=== PATIENT | female | born 1990 | race Caucasian/White ===

== ENCOUNTER 2020-07-10 09:16 | Outpatient (CLI) | payer OTHER ==
[2020-07-11 12:04] LABS: SARS-CoV-2 MS2 Positive; SARS-CoV-2 N Gene Negative; SARS-CoV-2 S Gene Negative; SARS-CoV-2 by NAA Not Detected (NotDetected); SARS-CoV-2 orf1ab Negative
== END 2020-07-10 09:17 | disposition home or self-care (01) ==
LOC: LABBT 09:16
PROVIDERS: ATTEND Obstetrics & Gynecology
DX: Z20.828 Contact with and (suspected) exposure to other viral communicable diseases (principal)
CPT/HCPCS: 87635; U0003

== ENCOUNTER 2020-07-13 08:13 | Inpatient (IN) | payer OTHER ==
[~2020-07-13 08:13] MED LIST: Bicitra 30 ML UDCUP PO SCH; CEFAZOLIN 2 GM in Premix Bag 1 BAG IVPB SCH; Lactated Ringer's 1,000 ML IV SCH; Ondansetron PF 4 MG/2 ML Vial IVP PRN; Promethazine HCl 25 MG/ML VIAL IM PRN; hydrALAZINE 20 MG/ML VIAL SLOW IVP PRN
[2020-07-13 08:59] VITALS: BMI 25.7
[2020-07-13] MEDS ORDERED: Scopolamine 1.5 mg/72 hour Patch ONE (09:22)
[2020-07-13] MEDS ORDERED: Famotidine/PF 20 mg/2ml Vial ONE (09:22)
[2020-07-13] MEDS ORDERED: Ondansetron PF 4 MG/2 ML Vial ONE (09:23)
[2020-07-13 09:42] LABS: Hemoglobin 11.7 g/dL (12.0-16.0); Mean Corpuscular HGB CONC 34.1 g/dL (32.0-36.0); Mean Corpuscular Hemoglobin 31.4 pg (27.0-31.0); Mean Corpuscular Volume 92.2 fL (78.0-98.0); Mean Platelet Volume 7.9 fL (7.4-10.4); Platelet Count 247 thou/uL (130-400); Red Blood Cell (RBC) Count 3.73 mill/uL (4.20-5.40); White Blood Cell (WBC) Count 12.1 thou/uL (4.8-10.8)
[2020-07-13] MEDS ORDERED: Oxytocin 10 UNITS/ML VIAL ONE ×2 (09:58→11:01)
[2020-07-13] MEDS ORDERED: Morphine PF 10 MG/10 ML VIAL ONE (09:59)
[2020-07-13 10:22] LABS: HBSAg Index 0.17 S/CO (0-0.99); Hep B Surf Ag Non-Reactive S/CO (NonReactive); Syphilis Antibody Nonreactive (Nonreactive); Syphilis Antibody Index 0.06 S/CO (<1.00 Non-Reactive)
[2020-07-13] MEDS ORDERED: Meperidine HCl/PF 25 MG/ML VIAL ONE (10:41)
[2020-07-13] MEDS ORDERED: PHENYLEPHRINE-NS 100 MCG/ML 10 ML SYRINGE ONE (10:44)
[2020-07-13] MEDS ORDERED: L&D-Morphine 4 MG/ML VIAL SLOW IVP PRN (10:59)
[2020-07-13] MEDS ORDERED: diphenhydrAMINE 50 MG/ML VIAL IVP PRN (10:59)
[2020-07-13] MEDS ORDERED: Naloxone HCl 0.4 mg/ml Vial IVP PRN ×2 (10:59)
[2020-07-13] MEDS ORDERED: Naloxone HCl 0.4 mg/ml Vial IV PRN (10:59)
[2020-07-13] MEDS ORDERED: Ondansetron PF 4 MG/2 ML Vial IVP PRN ×2 (10:59→12:07)
[2020-07-13] MEDS ORDERED: Promethazine HCl 25 MG SUPP PR PRN (10:59)
[2020-07-13] MEDS ORDERED: HYDROmorphone 2 MG/ML VIAL SLOW IVP PRN (10:59)
[2020-07-13] MEDS ORDERED: Ondansetron HCl/PF 4 MG/2 ML Vial IVP PRN (10:59)
[2020-07-13] MEDS ORDERED: Promethazine HCl 25 MG/ML VIAL IM PRN ×2 (10:59→12:07)
[2020-07-13] MEDS ORDERED: Meperidine HCl/PF 25 MG/ML VIAL SLOW IVP PRN (10:59)
[2020-07-13] MEDS ORDERED: Ketorolac Tromethamine 30 MG/ML VIAL IVP SCH (11:00)
[2020-07-13] MEDS ORDERED: Communication Order-Pharmacy FS SCH (11:00)
[2020-07-13] MEDS ORDERED: NS / Oxytocin 40 units/1000ml 1,000 ML IV SCH (12:07)
[2020-07-13] MEDS ORDERED: Lanolin Ointment 7 GM TUBE TOP PRN (12:07)
[2020-07-13] MEDS ORDERED: hydrALAZINE 20 MG/ML VIAL SLOW IVP PRN (12:07)
[2020-07-13] MEDS ORDERED: Simethicone Chewable 80 MG TAB PO PRN (12:07)
[2020-07-13] MEDS ORDERED: Ketorolac Tromethamine 30 MG/ML VIAL ONE (12:30)
[2020-07-13] MEDS: Ketorolac Tromethamine 30 MG/ML VIAL IVP PRN ×2 (12:37→18:21)
[2020-07-13] MEDS ORDERED: FLU VACC QS2020-21(6MOS UP)/PF 60 MCG/0.5 ML SYRINGE IM ONE (13:00)
[2020-07-13] MEDS ORDERED: Adacel (T-DAP) 0.5 ML SYRINGE IM ONE (15:00)
[2020-07-13] MEDS: Lactated Ringer's 1,000 ML IV SCH ×2 (15:35→22:39)
--- NOTE | 2020-07-13 16:46 | OP ---
DATE OF PROCEDURE: 07/13/2020 PREOPERATIVE DIAGNOSES: 39 weeks gestation, prior section for repeat at term. POSTOPERATIVE DIAGNOSES: 39 weeks gestation, prior section for repeat at term. PROCEDURE PERFORMED: Repeat low-transverse section without extension. VALUE ENGINEER: Sandra Sutherland PA-C ANESTHESIA: Subarachnoid block. ANESTHESIOLOGIST: DRAINS: Carranza to gravity. MEDICATIONS: 2 g Ancef preincision. DVT prophylaxis with SCDs. OPERATIVE FINDINGS: 1. Vigorous male , cephalic presentation, clear fluid with to nursery, Apgars and weight were pending. 2. Normal-appearing uterus, tubes, and ovaries bilaterally. 3. Hemostasis, clear urine. COUNTS: Correct at the end of the procedure. DISPOSITION: Recovery room in good condition. DESCRIPTION OF PROCEDURE: After obtaining appropriate informed consent, the patient was taken to the operating room, where subarachnoid block was achieved without difficulty. The patient was prepped and draped in the usual manner for delivery. Previous Pfannenstiel incision was identified, marked, and incised sharply and carried down to the fascia in the midline, extended superiorly and laterally with curved Meadows scissors. Rectus dissected off sharply superiorly and inferiorly, divided in midline. Peritoneum entered bluntly to avoid trauma to the underlying viscera. Niall O retractor was placed inside. Lower uterine segment and vesicouterine peritoneal fold were identified. Low-transverse hysterotomy was made just above the level of the vesicouterine peritoneal fold. Clear fluid noted upon entry and extended superiorly and laterally with finger fractionation. The 's head elevated to hysterotomy. The rest of the delivered, suctioned, cord clamped and cut, and handed off to the team in attendance. Usual cord blood sample obtained. Placenta delivered manually. Uterus was noted to be without extension with hysterotomy and curetted out with a dry laparotomy sponge. Hysterotomy was closed with a running locking #1 Monocryl suture x1 layer. The gutters were irrigated out bilaterally and reinspection of hysterotomy revealed it to be dry. The Niall O retractor was removed. The rectus was inspected, noted to be dry. Fascia was reapproximated using running 0 PDS suture x2. Subcutaneous tissue was irrigated, rendered hemostatic with Bovie cautery, reapproximated using 2-0 plain gut, and skin reapproximated using 4-0 Monocryl and Dermabond. The patient entered into routine postoperative care. EBL was within normal limits. QBL pending. Job ID: [id number]
[2020-07-13] MEDS: Docusate Calcium (SURFAK) 240 MG CAP PO SCH (22:38)
[2020-07-13] MEDS ORDERED: Zolpidem Tartrate 5 MG TAB PO PRN (23:01)
[2020-07-13] MEDS ORDERED: Meperidine HCl/PF 25 MG/ML VIAL IM PRN (23:01)
[2020-07-13] MEDS ORDERED: HYDROcodone/Acetaminophen 5/325 mg Tablet PO PRN (23:01)
[2020-07-14] MEDS ORDERED: Sodium Chloride 0.9% 10 ML ONE (00:59)
[2020-07-14] MEDS: Ketorolac Tromethamine 30 MG/ML VIAL IVP PRN (01:02)
[2020-07-14 06:10] LABS: Hemoglobin 9.3 g/dL (12.0-16.0); Mean Corpuscular HGB CONC 34.6 g/dL (32.0-36.0); Mean Corpuscular Hemoglobin 32.1 pg (27.0-31.0); Mean Corpuscular Volume 92.9 fL (78.0-98.0); Mean Platelet Volume 7.9 fL (7.4-10.4); Platelet Count 181 thou/uL (130-400); White Blood Cell (WBC) Count 10.9 thou/uL (4.8-10.8)
[2020-07-14] MEDS: Docusate Calcium (SURFAK) 240 MG CAP PO SCH ×2 (08:05→22:17)
[2020-07-14] MEDS: Prenatal Vitamin 1 TAB PO SCH (08:05)
[2020-07-14] MEDS: Lactated Ringer's 1,000 ML IV SCH ×2 (08:14→18:57)
--- NOTE | 2020-07-14 08:59 | PDOC.PP ---
Post Progress Note Post Day #: 1 Subjective: doing well, no concerns PO intake tolerated: yes Flatus: yes Ambulation: yes Vital Signs (12 hours) Temp Pulse Resp BP Pulse Ox 07/14/20 08:06 98.7 F 79 20 91/57 L 98 07/14/20 05:45 98 F 68 16 93/53 L 07/14/20 00:30 98.2 F 64 16 98/60 Weight Weight 150 lb - Physical Examination General: NAD Respiratory: non-labored breathing Skin: CS incision dry & intact Neurological: no gross focal deficits Psychiatric: A&Ox3, normal affect Result Diagrams: 07/14/20 05:50 Additional Labs: Post Labs Hep Bs Antigen Non-Reactive S/CO (NonReactive) 07/13/20 09:29 Blood Type B POSITIVE 07/13/20 09:29 (1) delivery delivered Code(s): O82 - ENCOUNTER FOR DELIVERY WITHOUT INDICATION Status: Acute - Assessment/Plan POD1 doing well, asymptomatic anemia, plan to start iron.
[2020-07-14] MEDS: HYDROcodone/Acetaminophen 5/325 mg Tablet PO PRN ×2 (12:31→19:53)
[2020-07-14] MEDS: Ibuprofen 800 MG TAB PO SCH ×2 (12:31→22:17)
[2020-07-15] MEDS: Lactated Ringer's 1,000 ML IV SCH (05:55)
[2020-07-15] MEDS: Ibuprofen 800 MG TAB PO SCH (06:06)
--- NOTE | 2020-07-15 06:13 | PDOC.PP ---
Post Progress Note Post Day #: POD2 Subjective: Tolerating diet. No c/o. PO intake tolerated: yes Flatus: yes Ambulation: yes Vital Signs (12 hours) Temp Pulse Resp BP Pulse Ox 07/15/20 04:30 98.4 F 75 16 102/68 98 07/15/20 00:30 98.2 F 70 18 103/64 97 07/14/20 19:42 98.6 F 78 20 114/71 96 Weight Weight 68.039 kg - Physical Examination General: NAD Respiratory: non-labored breathing Abdominal: no distention Skin: CS incision dry & intact Neurological: no gross focal deficits Psychiatric: normal affect Result Diagrams: 07/14/20 05:50 Additional Labs: Post Labs Hep Bs Antigen Non-Reactive S/CO (NonReactive) 07/13/20 09:29 Blood Type B POSITIVE 07/13/20 09:29 - Assessment/Plan DC home per pt. request. Precautions. RTC [address] Villegas.
[2020-07-15 08:08] VITALS: BP 107/60; TEMP 98.8
[2020-07-15] MEDS: Docusate Calcium (SURFAK) 240 MG CAP PO SCH (08:43)
[2020-07-15] MEDS: Prenatal Vitamin 1 TAB PO SCH (08:43)
== END 2020-07-15 12:25 | disposition home or self-care (01) | DRG 788 ==
LOC: L&D 08:13 → 3SE 13:45
PROVIDERS: ADMIT Obstetrics & Gynecology; ATTEND Obstetrics & Gynecology
PROC: 10D00Z1 Extraction of Products of Conception, Low, Open Approach (ICD-10-PCS; principal; 2020-07-13)
DX: O34.211 Maternal care for low transverse scar from previous cesarean delivery (principal); Z3A.39 39 weeks gestation of pregnancy; Z37.0 Single live birth; O99.02 Anemia complicating childbirth; D64.9 Anemia, unspecified; Z20.828 Contact with and (suspected) exposure to other viral communicable diseases
CPT/HCPCS: 36415; 51702; 85027; 86780; 86850; 86900; 86901; 87340; 90471; 90662; G0008; J0690; J1885; J2175; J2270; J2405; S0028